=== PATIENT | female | born 1945 | race Caucasian/White ===

== ENCOUNTER 2019-05-20 13:09 | Outpatient (CLI) | payer OTHER ==
[~2019-05-20 13:09] MED LIST: NORVASC5 MG; TOPAMAX50 MG; VASOTEC20 MG; VERELAN180 MG PO
== END 2019-05-20 13:15 | disposition home or self-care (01) ==
LOC: RAD 13:09
DX: S09.93XA Unspecified injury of face, initial encounter (principal)